=== PATIENT | female | born 1995 | race Caucasian/White ===

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

== ENCOUNTER 2017-12-15 07:14 | Emergency (ER) | payer OTHER ==
[2017-12-15 07:33] VITALS: BP 111/79
--- NOTE | 2017-12-15 08:07 | UC ---
Complaint Female HPI - HPI Summary HPI Summary: started with dysuria and frequency today after sexual intercourse denies chills or fever or flank pain, last UTI was more than 6 mo ago. LMD due tomorrow. - History Of Current Complaint Chief Complaint: UCGU Stated Complaint: URINARY ISSUE Time Seen by Provider: 12/15/17 07:16 Hx Obtained From: Patient Hx Last Menstrual Period: 11/16/17 ?: No Onset/Duration: Sudden Onset, Lasting Days Timing: Constant Severity Initially: Mild Severity Currently: Mild Pain Intensity: 3 Character: Burning Aggravating Factor(s): Urination Alleviating Factor(s): Nothing Associated Signs And Symptoms: Positive: Negative - Risk Factors Ectopic Risk Factor: Negative Ovarian Torsion Risk Factor: Reproductive Age - Allergies/Home Medications Allergies/Adverse Reactions: Allergies Allergy/AdvReac Type Severity Reaction Status Date / Time No Known Allergies Allergy Verified 12/15/17 07:25 Home Medications: Home Medications Control 12/15/17 [History] FLUoxetine CAP* [Prozac CAP*] 20 mg PO DAILY 12/15/17 [History Confirmed ] PMH/Surg Hx/FS Hx/Imm Hx Psychological History: Depression - Surgical History Surgical History: None - Family History Known Family History: Positive: None, Unknown - Level 5 caveat due to EtOH - Social History Alcohol Use: Occasionally Substance Use Type: None Substance Use Comment - Amount & Last Used: unknown Smoking Status (MU): Never Smoked Tobacco Review of Systems Genitourinary: Dysuria, Frequency All Other Systems Reviewed And Are Negative: Yes Physical Exam Triage Information Reviewed: Yes Appearance: Well-Appearing, No Pain Distress, Well-Nourished Vital Signs: Initial Vital Signs Temp 98.8 F 12/15/17 07:28 Pulse 75 12/15/17 07:28 Resp 16 12/15/17 07:28 BP 111/79 12/15/17 07:28 Pulse Ox 100 12/15/17 07:28 Vital Signs Reviewed: Yes Eyes: Positive: Conjunctiva Clear ENT: Positive: Hearing grossly normal Neck: Positive: Supple, Nontender Respiratory: Positive: Chest non-tender, Lungs clear, Normal breath sounds Cardiovascular: Positive: RRR, No Murmur, Pulses Normal, Brisk Capillary Refill Abdomen Description: Positive: Nontender, No Organomegaly, Soft Bowel Sounds: Positive: Present Complaint Female Dx - Course Course Of Treatment: Symptoms and Urine analysis are suggestive of UTI, start macrobid as prescribed, continue plenty of fluids, follow up with PCP in one week - Differential Dx/Diagnosis Provider Diagnoses: UTI Discharge - Sign-Out/Discharge Documenting (check all that apply): Patient Departure All imaging exams completed and their final reports reviewed: No Studies - Discharge Plan Condition: Stable Disposition: HOME Prescriptions: Nitrofurantoin Monohyd/M-Cryst [Macrobid 100 mg Capsule] 100 mg PO BID 7 Days # 14 cap Patient Education Materials: Nitrofurantoin Macrocrystals (By mouth), Urinary Tract Infection in Women (ED) Referrals: [facility], [facility] - Adri[facility] [Primary Care Provider] - - Billing Disposition and Condition Condition: STABLE Disposition: Home
== END 2017-12-15 08:05 | disposition home or self-care (01) ==
LOC: UCEAST 07:14
DX: N39.0 Urinary tract infection, site not specified (principal); Z87.440 Personal history of urinary (tract) infections; F32.9 Major depressive disorder, single episode, unspecified; Z79.3 Long term (current) use of hormonal contraceptives
CPT/HCPCS: 81003; 87077; 87086; 87186; 99212; G0463